=== PATIENT | female | born 1935 | race Caucasian/White ===

== ENCOUNTER 2017-10-08 08:56 | Inpatient (IN) | payer OTHER ==
[~2017-10-08] VITALS: Ht 162.6 cm; Wt 107.0 kg
[~2017-10-08 08:56] MED LIST: AMLODIPINE BESYL5 MG PO; ASPIR 8181 M1 PO; ESOMEPRAZOLE MA40 MG PO; HYOSCYAMINE0.375 MG PO; LOPRESSOR100 M1 PO; LOSARTAN POTASS50 MG PO; MELOXICAM7.5 MG PO; PRAMIPEXOLE D0.25 MG PO; ULTRAM50 MG PO
[2017-10-08 10:29] LABS: HEMATOCRIT 42.1 % (36.0-46.0); HEMOGLOBIN 14.7 G/DL (11.9-15.5); MCH 32.6 PG (29.0-34.0); MCHC 34.9 G/DL (30.0-36.0); MCV 93.3 FL (83-99); PLATELET COUNT 166 K/uL (156-360); RBC DIS.WIDTH-CV 12.6 % (11.8-14.6); RBC DIS.WIDTH-SD 43.3 % (39-53); RED BLOOD COUNT 4.51 M/uL (3.80-5.20); WHITE BLOOD COUNT 6.1 K/uL (4.1-10.2)
[2017-10-08 10:39] LABS: CHLORIDE 101 mEq/L (99-109); POTASSIUM 4.3 mEq/L (3.7-5.4); SODIUM 139 mEq/L (136-147)
[2017-10-08 10:41] LABS: GLUCOSE 142 mg/dL (70-99)
[2017-10-08 10:45] LABS: CREATININE 0.9 mg/dL (0.6-1.3); GFR ESTIMATE (CALCULATED) > 59 mL/min/
[2017-10-08 10:46] LABS: UREA NITROGEN (BUN) 17 mg/dL (9-23)
[2017-10-08 14:21] LABS: APPEARANCE CLOUDY ((CLEAR)); BILIRUBIN NEGATIVE; BLOOD NEGATIVE; COLOR YELLOW ((YELLOW)); GLUCOSE (STRIP) NEGATIVE; KETONES 5; LEUKOCYTES SMALL; NITRITE POSITIVE; PROTEIN (STRIP) NEGATIVE; SPECIFIC GRAVITY 1.014 (1.000-1.030); UROBILINOGEN 0.2 MG/DL (0.2-1.0)
[2017-10-08 14:54] LABS: EPITHELIAL CELLS RARE /HPF; RED BLOOD CELLS NONE SEEN /HPF (0-5)
[2017-10-08 14:55] LABS: BACTERIA 3+ /HPF; MUCUS NONE SEEN /LPF; UCUL ADDED? YES
[2017-10-08] MEDS ORDERED: CENTRUM SILVER1 EAC3 PO (15:22)
[2017-10-08] MEDS ORDERED: CALCIUM 500 MG1 EACH PO (15:22)
[2017-10-08] MEDS ORDERED: GABAPENTIN300 MG PO (15:22)
[2017-10-08] MEDS ORDERED: NAPROXEN SODIU500 M1 PO (15:23)
[2017-10-08] MEDS ORDERED: FUROSEMIDE20 MG PO (15:24)
[2017-10-08] MEDS ORDERED: REPATHA SU140 MG/1 M SC (15:24)
[2017-10-08] MEDS ORDERED: TYLENOL REGULA325 MG PO (15:25)
[2017-10-08 18:33] VITALS: BP 144/66
[2017-10-08 19:50] VITALS: BP 158/75
[2017-10-08 23:55] VITALS: BP 128/63
[2017-10-09 03:51] VITALS: BP 166/78
[2017-10-09 06:35] LABS: HEMATOCRIT 43.4 % (36.0-46.0); HEMOGLOBIN 14.3 G/DL (11.9-15.5); MCH 31.4 PG (29.0-34.0); MCHC 32.9 G/DL (30.0-36.0); MCV 95.4 FL (83-99); PLATELET COUNT 142 K/uL (156-360); RBC DIS.WIDTH-CV 12.9 % (11.8-14.6); RBC DIS.WIDTH-SD 45.9 % (39-53); RED BLOOD COUNT 4.55 M/uL (3.80-5.20); WHITE BLOOD COUNT 8.1 K/uL (4.1-10.2)
[2017-10-09 06:53] LABS: ALBUMIN 3.8 G/DL (3.2-4.8); ALKALINE PHOSPHATASE 85 IU/L (3-129); ALT (GPT) 31 IU/L (3-49); AST (GOT) 31 IU/L (2-34); CHLORIDE 106 MEQ/L (99-109); CREATININE 0.6 MG/DL (0.6-1.3); GFR ESTIMATE (CALCULATED) > 59 mL/min/; GLUCOSE 169 mg/dL (70-99); POTASSIUM 4.7 MEQ/L (3.7-5.4); SODIUM 139 MEQ/L (136-147); TOTAL BILIRUBIN 0.5 MG/DL (0.0-1.0); TOTAL PROTEIN 6.5 G/DL (6.4-8.3); UREA NITROGEN (BUN) 13 mg/dL (9-23)
[2017-10-09 07:34] VITALS: BP 178/80
[2017-10-09 11:17] VITALS: BP 144/67
[2017-10-09 15:10] VITALS: BP 164/80
[2017-10-09 18:55] VITALS: BP 159/71
[2017-10-09 23:23] VITALS: BP 185/79
[2017-10-10 04:00] VITALS: BP 148/66
[2017-10-10 07:18] VITALS: BP 175/79
[2017-10-10 15:35] VITALS: BP 129/65
[2017-10-10 19:00] VITALS: BP 137/63
[2017-10-10 23:36] VITALS: BP 121/57
[2017-10-11 03:31] VITALS: BP 124/69
[2017-10-11 08:00] VITALS: BP 159/67
[2017-10-11 12:49] VITALS: BP 135/67
[2017-10-11 15:42] VITALS: BP 139/74
[2017-10-11] MEDS ORDERED: CYCLOBENZAPRINE10 MG PO (20:22)
[2017-10-11] MEDS ORDERED: HYDROCODON-ACE1 EAC9 PO (20:22)
[2017-10-11 21:27] VITALS: BP 116/54
[2017-10-12] VITALS (7 sets, daily range): BP systolic 97–152; BP diastolic 51–71
[2017-10-13 03:55] VITALS: BP 132/84
[2017-10-13 07:47] VITALS: BP 168/74
[2017-10-13 11:00] VITALS: BP 121/58
[2017-10-13] MEDS ORDERED: NYSTATIN15 GM TP (19:21)
[2017-10-13] MEDS ORDERED: DULCOLAX10 MG PR (19:22)
[2017-10-13] MEDS ORDERED: CEFTIN500 MG PO (19:23)
[2017-10-13] MEDS ORDERED: MIRALAX17 GM PO (19:24)
[2017-10-13] MEDS ORDERED: PROTONIX40 MG PO (19:24)
[2017-10-13] MEDS ORDERED: SOLU-MEDRO40 MG/1 ML IV (19:25)
[2017-10-13] MEDS ORDERED: HEPARIN SO5000 UNIT4 SC (19:26)
[2017-10-13] MEDS ORDERED: COLACE100 MG PO (19:26)
[2017-10-13] MEDS ORDERED: ZOFRAN4 MG PO (19:27)
== END 2017-10-13 18:22 | DRG 29 ==
LOC: EME 08:56 → EDOF 15:49 → 4SOUTH 15:49 → ENRESERV 15:51 → 4SOUTH 17:57 → 3EAST 10-09 15:27 → 4SOUTH 10-09 15:27 → ENRESERV 10-11 08:45 → 3EAST 10-11 21:20
PROVIDERS: Emergency Medicine; Hospitalist
PROC: 0SB20ZZ Excision of Lumbar Vertebral Disc, Open Approach (ICD-10-PCS; principal; 2017-10-11)
DX: G89.29 Other chronic pain (principal); N39.0 Urinary tract infection, site not specified; Z68.41 Body mass index [BMI] 40.0-44.9, adult; M51.16 Intervertebral disc disorders with radiculopathy, lumbar region; M16.12 Unilateral primary osteoarthritis, left hip; Z95.1 Presence of aortocoronary bypass graft; I25.10 Atherosclerotic heart disease of native coronary artery without angina pectoris; I10 Essential (primary) hypertension; Z79.82 Long term (current) use of aspirin; B96.20 Unspecified Escherichia coli [E. coli] as the cause of diseases classified elsewhere; E66.9 Obesity, unspecified
CPT/HCPCS: 72100; 72148; 73502; 76000; 80048; 80053; 81003; 85027; 87077; 87086; 87186; 94799; 97530 GO; 99281; 99285; A6214; G0378; J0131; J0690; J0696; J1100; J1644; J1885; J2060; J2270; J2405; J2710; J2920; J2930; J3010; J3480; J7030; J7643

== ENCOUNTER 2017-10-13 15:27 | Inpatient (IN) | payer OTHER ==
[~2017-10-13] VITALS: Ht 162.6 cm; Wt 99.6 kg
[~2017-10-13 15:27] MED LIST changes: +CALCIUM 500 MG1 EACH PO; +CENTRUM SILVER1 EAC3 PO; +CYCLOBENZAPRINE10 MG PO; +FUROSEMIDE20 MG PO; +GABAPENTIN300 MG PO; +HYDROCODON-ACE1 EAC9 PO; +NAPROXEN SODIU500 M1 PO; +REPATHA SU140 MG/1 M SC; +TYLENOL REGULA325 MG PO
[2017-10-13 18:57] VITALS: BP 133/60
[2017-10-13] MEDS ORDERED: NYSTATIN15 GM TP (19:21)
[2017-10-13] MEDS ORDERED: DULCOLAX10 MG PR (19:22)
[2017-10-13] MEDS ORDERED: CEFTIN500 MG PO (19:23)
[2017-10-13] MEDS ORDERED: PROTONIX40 MG PO (19:24)
[2017-10-13] MEDS ORDERED: MIRALAX17 GM PO (19:24)
[2017-10-13] MEDS ORDERED: SOLU-MEDRO40 MG/1 ML IV (19:25)
[2017-10-13] MEDS ORDERED: HEPARIN SO5000 UNIT4 SC (19:26)
[2017-10-13] MEDS ORDERED: COLACE100 MG PO (19:26)
[2017-10-13] MEDS ORDERED: ZOFRAN4 MG PO (19:27)
[2017-10-13 23:47] VITALS: BP 155/65
[2017-10-14 04:43] VITALS: BP 131/61
[2017-10-14 06:39] LABS: HEMATOCRIT 35.8 % (36.0-46.0); MCHC 34.1 G/DL (30.0-36.0); NRBC (%) 0.3 /100 WBC (0-0); RBC DIS.WIDTH-CV 12.8 % (11.8-14.6); RBC DIS.WIDTH-SD 44.3 % (39-53); RED BLOOD COUNT 3.81 M/uL (3.80-5.20); WHITE BLOOD COUNT 7.6 K/uL (4.1-10.2)
[2017-10-14 06:56] LABS: HEMOGLOBIN 12.2 G/DL (11.9-15.5)
[2017-10-14 07:32] LABS: PLAT.SUFFICIENCY DECREASED; PLATELET COUNT 111 K/uL (156-360)
[2017-10-14 08:01] LABS: ALBUMIN 3.5 G/DL (3.2-4.8); ALKALINE PHOSPHATASE 59 IU/L (3-129); ALT (GPT) 32 IU/L (3-49); AST (GOT) 26 IU/L (2-34); CHLORIDE 102 MEQ/L (99-109); CREATININE 0.8 MG/DL (0.6-1.3); GFR ESTIMATE (CALCULATED) > 59 mL/min/; GLUCOSE 188 mg/dL (70-99); POTASSIUM 4.7 MEQ/L (3.7-5.4); SODIUM 138 MEQ/L (136-147); TOTAL BILIRUBIN 0.4 MG/DL (0.0-1.0)
[2017-10-14 08:03] LABS: TOTAL PROTEIN 5.5 G/DL (6.4-8.3); UREA NITROGEN (BUN) 21 mg/dL (9-23)
[2017-10-14 15:26] VITALS: BP 134/61
[2017-10-15 05:04] VITALS: BP 113/55
[2017-10-15 14:37] VITALS: BP 99/55
[2017-10-16 04:10] VITALS: BP 128/68
[2017-10-16 16:00] VITALS: BP 129/77
[2017-10-17 04:17] VITALS: BP 143/63
[2017-10-17] MEDS ORDERED: CEFTIN500 MG PO (12:58)
[2017-10-17] MEDS ORDERED: PREDNISONE20 MG PO (12:58)
== END 2017-10-17 14:00 | disposition home health service (06) | DRG 560 ==
LOC: 3WEST 15:27
PROVIDERS: Physical Medicine & Rehabilitation Pain Medicine
PROC: F07M0ZZ Range of Motion and Joint Mobility Treatment of Musculoskeletal System - Whole Body (ICD-10-PCS; principal; 2017-10-14)
DX: Z47.89 Encounter for other orthopedic aftercare (principal); Z74.09 Other reduced mobility; I25.10 Atherosclerotic heart disease of native coronary artery without angina pectoris; M16.0 Bilateral primary osteoarthritis of hip; N39.0 Urinary tract infection, site not specified; D69.6 Thrombocytopenia, unspecified; Z95.1 Presence of aortocoronary bypass graft; Z98.890 Other specified postprocedural states; M54.5 Low back pain; I10 Essential (primary) hypertension; B96.20 Unspecified Escherichia coli [E. coli] as the cause of diseases classified elsewhere
CPT/HCPCS: 80053; 85027; 94799; 97110 GO; 97530 GP; J2920; J7512